=== PATIENT | female | born 1930 | race Caucasian/White ===

== ENCOUNTER → 2019-07-28 | Outpatient (REF) | payer MEDICARE ==
[2019-07-28 17:48] LABS: ALBUMIN 3.5 GM/DL (3.2-5.2); BILIRUBIN,TOTAL 0.3 MG/DL (0.2-1.0); CALCIUM LEVEL 8.7 MG/DL (8.8-10.2); CHOLESTEROL RISK RATIO 3.188 (<5); CREATININE FOR GFR 1.86 MG/DL (0.55-1.30); FREE T4 0.89 NG/DL (0.76-1.46); GLOMERULAR FILTRATION RATE 27.3 (>32); MAGNESIUM LEVEL 1.8 MG/DL (1.8-2.4); POTASSIUM SERUM 3.7 MEQ/L (3.5-5.1); THYROID STIMULATING HORMONE 1.58 uIU/ML (0.358-3.740); TOTAL PROTEIN 6.9 GM/DL (6.4-8.2)
[2019-07-28 17:49] LABS: TOTAL 25(OH) VITAMIN D 16.5 NG/ML (30.0-100.0)
[2019-07-28 17:50] LABS: BASO # 0.1 10^3/uL (0.0-0.2); BASO % 0.8 % (0.0-1.0); EOS # 0.3 10^3/uL (0.0-0.5); HEMOGLOBIN 10.5 g/dl (12.0-15.5); LYMPH # 1.5 10^3/uL (1.5-5.0); LYMPH % 21.5 % (24.0-44.0); MEAN CORPUSCULAR HEMOGLOBIN 30.3 pg (27.0-33.0); MEAN CORPUSCULAR HGB CONC 30.9 g/dl (32.0-36.5); MONO # 0.6 10^3/uL (0.0-0.8); MONO % 7.9 % (0.0-5.0); NEUTROPHILS # 4.6 10^3/uL (1.5-8.5); NEUTROPHILS % 65.4 % (36.0-66.0); PLATELET COUNT, AUTOMATED 211 10^3/uL (150-450); RED BLOOD COUNT 3.47 10^6/uL (4.00-5.40); WHITE BLOOD COUNT 7.1 10^3/uL (4.0-10.0)
[2019-07-28 18:23] LABS: HEMOGLOBIN A1c 5.9 %
== END ==
LOC: M SFHCPLAZ 15:04
PROVIDERS: ATTEND Nurse Practitioner Family
DX: I10 Essential (primary) hypertension (principal); E03.9 Hypothyroidism, unspecified; E78.5 Hyperlipidemia, unspecified; M10.9 Gout, unspecified; E55.9 Vitamin D deficiency, unspecified

== ENCOUNTER → 2019-11-24 | Outpatient (REF) | payer MEDICARE ==
[2019-11-24 16:05] LABS: ALBUMIN 3.7 GM/DL (3.2-5.2); BILIRUBIN,TOTAL 0.6 MG/DL (0.2-1.0); CALCIUM LEVEL 9.2 MG/DL (8.8-10.2); CHOLESTEROL RISK RATIO 3.085 (<5); CREATININE FOR GFR 2.4 MG/DL (0.55-1.30); GLOMERULAR FILTRATION RATE 20.3 (>32); PERCENT SATURATION 18.5 % (13.2-45.0); POTASSIUM SERUM 4.2 MEQ/L (3.5-5.1); THYROID STIMULATING HORMONE 4.33 uIU/ML (0.358-3.740); TOTAL 25(OH) VITAMIN D 112.5 NG/ML (30.0-100.0); TOTAL PROTEIN 7.1 GM/DL (6.4-8.2)
[2019-11-24 16:09] LABS: HEMOGLOBIN A1c 5.9 %
== END ==
LOC: M SFHCPLAZ 12:36
PROVIDERS: ATTEND Nurse Practitioner Family
DX: I10 Essential (primary) hypertension (principal); D64.9 Anemia, unspecified; E03.9 Hypothyroidism, unspecified; R73.09 Other abnormal glucose; E78.5 Hyperlipidemia, unspecified; E55.9 Vitamin D deficiency, unspecified
CPT/HCPCS: 36415; 80053; 80061; 82306; 82728; 83036; 83550; 83970; 84439; 84443; 85046; G0404

== ENCOUNTER → 2019-12-03 | Outpatient (REF) | payer MEDICARE ==
[2019-12-07 18:42] LABS: FOLATE 22.1 NG/ML
== END ==
LOC: M LAB REF 16:59
PROVIDERS: ATTEND Internal Medicine Nephrology
DX: N18.9 Chronic kidney disease, unspecified (principal); D63.1 Anemia in chronic kidney disease

== ENCOUNTER → 2019-12-10 | Outpatient (CLI) | payer MEDICARE, MEDICAID ==
--- NOTE | 2019-12-10 19:26 | REP ---
Urinary tract sonography: History: Chronic kidney disease stage IV. No comparison imaging. Sonographic findings: Scanning at the urinary bladder level shows no significant abnormality. Renal cortical echogenicity pattern is isoechoic consistent with chronic medical renal disease. Right kidney measures 8.3 x 4.1 x 4.0 cm. The left renal dimensions are 9.1 x 3.2 x 3.9 cm. The kidneys have a cortical thinning and mild atrophy is seen bilaterally. There is no evidence of hydronephrosis on either side. There are multiple cysts in each kidney. These include a 3.0 x 2.4 x 3.3 cm cyst in the upper pole of the right and two smaller cysts each measuring 1.6 cm in greatest diameter. On the left there is a 2.3 x 1.8 x 1.1 cm cyst and a 2.4 x 2.1 x 2.3 cm cyst in the upper pole. There is also a 1.0 cm cyst in the upper pole on the left. Impression: Increased cortical echogenicity consistent with chronic medical renal disease. Multiple bilateral cysts. Some cortical and renal atrophy. Electronically Signed by Toy Quan MD 12/10/2019 09:14 P
== END ==
LOC: M RAD 13:49
PROVIDERS: ATTEND Internal Medicine Nephrology
DX: N18.4 Chronic kidney disease, stage 4 (severe) (principal); I12.9 Hypertensive chronic kidney disease with stage 1 through stage 4 chronic kidney disease, or unspecified chronic kidney disease; M1A.30X0 Chronic gout due to renal impairment, unspecified site, without tophus (tophi); N28.1 Cyst of kidney, acquired

== ENCOUNTER 2020-01-21 10:30 | Day surgery (SDC) | payer MEDICARE, MEDICAID ==
[~2020-01-21] VITALS: Ht 154.9 cm; Wt 61.1 kg
[2020-01-21] VITALS (7 sets, daily range): BP systolic 146–178; BP diastolic 80–92
[~2020-01-21 10:30] MED LIST: ALLO100T PO; ASPI81TA85 PO; CARV3.12 PO; LEVO25TA5 PO; LIDOCAINE 1% MDV 20ML VIAL SQ PRN; LIDOCAINE 2% INJ 100 MG/5 ML SDV (FOR ANES.) As Ordered ONE; LR 1,000 ML IV ONE; MIDAZOLAM INJ 2 MG/2 ML VIAL (J2250) As Ordered ONE; ONDANSETRON 4MG/2ML VIAL (J2405) As Ordered ONE; SIMV20TA22 PO; ceFAZolin SOD 1 GM in D5W MINI-BAG PLUS 50 ML IV ONE; dexameTHASONE 4 MG/ML 1ML VIAL (J1100) As Ordered ONE; fentaNYL 100 MCG/2 ML INJECTION (J3010) As Ordered ONE; propofoL 200 MG/20 ML VIAL As Ordered ONE
[2020-01-21 11:03] LABS: HEMATOCRIT 36.8 % (36.0-47.0); HEMOGLOBIN 11.3 g/dl (12.0-15.5); MEAN CORPUSCULAR HEMOGLOBIN 30.1 pg (27.0-33.0); MEAN CORPUSCULAR HGB CONC 30.7 g/dl (32.0-36.5); MEAN CORPUSCULAR VOLUME 98.1 fl (80.0-96.0); PLATELET COUNT, AUTOMATED 208 10^3/uL (150-450); RED BLOOD COUNT 3.75 10^6/uL (4.00-5.40); WHITE BLOOD COUNT 6.2 10^3/uL (4.0-10.0)
[2020-01-21] MEDS ORDERED: FERR325T16 PO (11:30)
[2020-01-21] MEDS ORDERED: POTA10808 PO (11:30)
[2020-01-21] MEDS ORDERED: MUPIROCIN 2% OINT 22 GM TUBE As Ordered ONE (12:12)
[2020-01-21] MEDS ORDERED: LIDOCAINE 1% SDV INJ 30 ML VIAL As Ordered ONE (12:12)
[2020-01-21] MEDS ORDERED: ISOVUE-300 61% 50ML VIAL (Q9967) As Ordered ONE (12:12)
[2020-01-21] MEDS ORDERED: VANCOMYCIN HCL 500 MG/10 ML VIAL (J3370) As Ordered ONE (12:12)
[2020-01-21] MEDS ORDERED: LR 400 ML IV SCH (13:15)
[2020-01-21] MEDS ORDERED: propofoL 200 MG/20 ML VIAL As Ordered ONE (13:54)
[2020-01-21] MEDS ORDERED: ACETAMINOPHEN 1000MG 100ML IV BTL (OFIRMEV) (J0131 PER 10MG) As Ordered ONE (14:46)
[2020-01-21] MEDS ORDERED: ONDANSETRON 4MG/2ML VIAL (J2405) IV PRN (15:45)
[2020-01-21] MEDS ORDERED: PERCOCET 5MG/325MG TAB PO PRN (15:45)
[2020-01-21] MEDS ORDERED: LR 1,000 ML IV SCH (15:45)
[2020-01-21] MEDS ORDERED: ACETAMINOPHEN TAB 650MG DOSE (2X325MG) PO PRN (16:00)
--- NOTE | 2020-01-21 17:01 | REP ---
C-ARM VIEW CHEST: C-Arm view of the chest is performed during pacemaker insertion. There is a left dual lead pacemaker with atrial and ventricular leads apparently in good position. Fluoroscopy time 7.05 minutes. Electronically Signed by Eugene Qureshi MD 01/25/2020 04:15 P
--- NOTE | 2020-01-21 17:05 | REP ---
Portable chest x-ray: Single view. History: Status post pacemaker. Comparison chest x-ray: June 24, 2006. Findings: There are surgical clips in the left axillary soft tissues. A bipolar pacemaker is seen in the right heart via the left side. There are surgical clips adjacent to the pacemaker power plant. Monitoring electrodes are seen. There is a moderate sized hiatal hernia. There is no evidence of pneumothorax or hydrothorax. Lung shankar are clear. Impression: Transvenous pacemaker insertion via the left side. No complication is seen. Hiatal hernia noted. Electronically Signed by Toy Quan MD 01/21/2020 06:57 P
[2020-01-21] MEDS ORDERED: SLF 3 ML SYR IV PRN (18:30)
[2020-01-21] MEDS ORDERED: SIMVASTATIN 20 MG TAB PO SCH (21:00)
[2020-01-21] MEDS: SLF 3 ML SYR IV SCH (21:09)
--- NOTE | 2020-01-21 21:26 | RO ---
DATE OF PROCEDURE: 01/21/2020 INDICATION: Sick sinus syndrome. PREPROCEDURE DIAGNOSIS: Sick sinus syndrome. POSTPROCEDURE DIAGNOSIS: Sick sinus syndrome. FINDINGS: Sick sinus syndrome. PROCEDURE PERFORMED: Implantation of a permanent dual-chamber pacemaker (Medtronic). SURGEON: Peterson Boyd MD OIL PAINT SHADER: None. ANESTHESIA: ESTIMATED BLOOD LOSS: 150 mL. COMPLICATIONS: None. BIOPSIES: None. SPECIMENS: None. DESCRIPTION OF PROCEDURE: The patient was prepped and draped over the left pectoral region and 3M Ioban film was applied. Lidocaine 1% was used for local anesthetic. A left subclavian venogram was performed using a total volume of 20 mL consisting of a mixture of five parts Isovue to one part injectable normal saline, which was injected via a left forearm peripheral vein and was used in real time under fluoroscopic visualization to obtain percutaneous venipuncture into the extrathoracic portion of the left subclavian vein using a micropuncture needle. A guidewire was then placed into the vein. This was then guidewire exchanged for a guidewire that came with one of the 7-Malagasy introducers. Next, an incision was made with a PEAK PlasmaBlade approximately 2-1/2 inches in length, 1 cm below the entry site of the guidewire approximately parallel to the left clavicle. The PEAK PlasmaBlade was used to get through the fatty layer and the fibrous Paulie's fascia. The pacemaker pocket was then formed in a caudal direction using blunt dissection using two fingers to form the pacemaker pocket. The guidewire was then pulled through the skin into the incision site. Next, a 7-Malagasy sheath with introducer was placed over the guidewire and advanced into the left subclavian vein. The sheath was left in place along with the guidewire and the introducer was removed. Next, the guidewire from the other 7-Malagasy sheath was placed alongside the first guidewire within this 7-Malagasy sheath. Next, the 7-Malagasy sheath was withdrawn and the two guidewires left in the vein. Next, the introducer was placed back into the sheath and then the combination of the sheath and introducer was placed over one of the guidewires. This was used for vein access for the right ventricle lead. The right ventricle lead was placed under fluoroscopic guidance into the right ventricle apex position where it was secured with a total of eight turns. This position was found to be electrically and anatomically satisfactory and no diaphragm stimulation could be palpated on either side with 8 volts high output pacing. The 7-Malagasy sheath was then broken apart and removed. Next, the other 7-Malagasy sheath with introducer was placed over the other guidewire and advanced into the vein. This sheath was used for vein access for placement of the right atrial lead. The right atrial lead was placed into the vicinity of the right atrial appendage under fluoroscopic guidance using the assistance of a preformed J-stylet. It was secured with a total of 10 turns. This position was found to be electrically and anatomically satisfactory. The 7-Malagasy sheath was then removed. Next, the atrial and ventricular leads were secured to the pectoral muscle using their supplied tie-down sheaths using a single #0 Ethibond suture around each sheath to secure it to the pectoral muscle over the suture sleeves. Next, I took a #2-0 Vicryl suture and placed a pots suture covering the pectoral muscle entry site of the two leads to stop backbleeding from the vein into the pocket, and this was successful. Next, another #0 Ethibond suture was placed in the pectoral muscle to serve as the tie-down for the pacemaker pulse generator. The terminal pins of the atrial and ventricular leads were plugged into their respective ports and each one was secured by tightening the set screws with the hex screwdriver. The excess lead material was then coiled underneath the pacemaker pulse generator and placed into the pacemaker pocket along with the pacemaker pulse generator with the pacemaker pulse generator on top and the excess lead material below it. The pulse generator was then secured to the pectoral muscle with the previously placed #0 Ethibond suture. The deep layer was then closed using individual sutures consisting of #2-0 Vicryl. The skin was closed using mi. This was followed by application of Bactroban ointment, followed by Telfa, followed by sterile gauze, followed by a Bioclusive dressing, and then a light pressure dressing applied with foam tape. The patient received a left arm sling prior to leaving the operating room. The patient tolerated the procedure well without any immediate complications. The pacemaker pulse generator implanted was a [employer] [place] XT DR MRI with model #W1DR01 with serial #[id number]. The right atrial lead implanted was a Medtronic model 365555 with serial #[id number]. Testing of the right atrial lead in the operating room in bipolar configuration via the pulse analyzer showed capture threshold of 0.4 volts at 0.4 milliseconds with a lead impedance of 399 ohms, and P wave amplitude of 2.1 millivolts. Device-based testing in the operating room for the right atrial lead showed capture threshold of 0.5 volts at 0.4 milliseconds with P wave amplitude of 1.0 millivolts and lead impedance of 399 ohms. The right ventricle lead implanted was a Medtronic model 047380 with serial #[id number]. Final testing in the operating room of the right ventricle lead in bipolar configuration via the pulse analyzer showed capture threshold of 0.4 volts at 0.4 milliseconds with lead impedance of 494 ohms and R wave amplitude of 4.0 millivolts. Device-based testing in the operating room for the right ventricle lead showed R wave amplitude of 3.7 millivolts with lead impedance of 475 ohms and a capture threshold of 0.5 volts at 0.4 milliseconds.
[2020-01-22 04:00] VITALS: BP 168/96
[2020-01-22] MEDS: SLF 3 ML SYR IV SCH ×2 (05:51→13:55)
[2020-01-22] MEDS ORDERED: LEVOTHYROXINE 50MCG TABLET (0.05MG) PO SCH (06:00)
[2020-01-22 08:00] VITALS: BP 149/80
--- NOTE | 2020-01-22 08:29 | REP ---
Chest x-ray: Two views. History: Postop dual chamber pacemaker. Comparison study January 21, 2020 and June 24, 2006. Findings: There is a large hiatal hernia. A bipolar pacemaker is seen in place via the left side. There is no evidence of pneumothorax. 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 Heart size is borderline unchanged. Impression: No pneumothorax seen. Bibasilar fibrosis. Large hiatal hernia. Pacemaker in place. Electronically Signed by Toy Quan MD 01/22/2020 08:20 A
[2020-01-22] MEDS ORDERED: allopurinoL 100 MG TAB PO SCH (09:00)
[2020-01-22] MEDS: amLODIPine 5 MG TAB PO SCH ×2 (09:22→09:24)
[2020-01-22 09:24] VITALS: BP 149/80
--- NOTE | 2020-01-22 10:25 | ECGEPIP ---
[facility] Test Date: 2020-01-21 Pat Name: VICENTE WISDOM Department: Room: [place] [address] Gender: Female Tire Layer: YA : 1930 Requested By: Peterson Boyd Order Number: [id number] Reading MD: Peterson Lacey Measurements Intervals [place] Rate: 82 P: 20 DE: 193 QRS: -14 QRSD: 81 T: 8 QT: 397 QTc: 465 Interpretive Statements SINUS RHYTHM Inferior Q waves of uncertain significance Possible lead placement abnormality v1-v3 Comparison tracing not on file Electronically Signed on 01-22-2020 10:24:48 EST by Peterson Lacye
[2020-01-22 12:00] VITALS: BP 142/68
[2020-01-22] MEDS ORDERED: AMLO5TAB6 PO (13:51)
[2020-01-22] MEDS ORDERED: ACET1TAB55 PO (13:51)
== END 2020-01-22 15:10 | disposition home or self-care (01) ==
LOC: M SDC 10:30 → M PCU 16:41 → M SDC 01-22 15:10
PROVIDERS: ATTEND Internal Medicine Cardiovascular Disease
DX: I49.5 Sick sinus syndrome (principal); I10 Essential (primary) hypertension; E78.00 Pure hypercholesterolemia, unspecified; R55 Syncope and collapse; M10.9 Gout, unspecified; E03.9 Hypothyroidism, unspecified; N28.9 Disorder of kidney and ureter, unspecified; Z85.3 Personal history of malignant neoplasm of breast; M19.90 Unspecified osteoarthritis, unspecified site; Z92.21 Personal history of antineoplastic chemotherapy; Z92.3 Personal history of irradiation; Z79.899 Other long term (current) drug therapy; Z79.82 Long term (current) use of aspirin
CPT/HCPCS: 33208; 36415; 71045; 71046; 76000; 85027; 93005; C1785; C1898; J0131; J0690; J1100; J2250; J2405; J3010; Q9967

== ENCOUNTER → 2020-08-29 | Outpatient (REF) | payer MEDICARE ==
[~2020-08-29] MED LIST changes: +ACET1TAB55 PO; +AMLO1TAB24 PO; -ASPI81TA85 PO; +ASPI81TA86 PO; +FERR325T16 PO; -LIDOCAINE 1% MDV 20ML VIAL SQ PRN; -LIDOCAINE 2% INJ 100 MG/5 ML SDV (FOR ANES.) As Ordered ONE; -LR 1,000 ML IV ONE; -MIDAZOLAM INJ 2 MG/2 ML VIAL (J2250) As Ordered ONE; -ONDANSETRON 4MG/2ML VIAL (J2405) As Ordered ONE; +POTA10808 PO; -ceFAZolin SOD 1 GM in D5W MINI-BAG PLUS 50 ML IV ONE; -dexameTHASONE 4 MG/ML 1ML VIAL (J1100) As Ordered ONE; -fentaNYL 100 MCG/2 ML INJECTION (J3010) As Ordered ONE; -propofoL 200 MG/20 ML VIAL As Ordered ONE
[2020-08-29 17:30] LABS: BASO # 0.1 10^3/uL (0.0-0.2); BASO % 1.1 % (0.0-1.0); EOS # 0.3 10^3/uL (0.0-0.5); HEMATOCRIT 41.3 % (36.0-47.0); HEMOGLOBIN 12.9 g/dl (12.0-15.5); LYMPH # 1.3 10^3/uL (1.5-5.0); LYMPH % 20.2 % (24.0-44.0); MEAN CORPUSCULAR HEMOGLOBIN 30.1 pg (27.0-33.0); MEAN CORPUSCULAR HGB CONC 31.2 g/dl (32.0-36.5); MEAN CORPUSCULAR VOLUME 96.3 fl (80.0-96.0); MONO # 0.5 10^3/uL (0.0-0.8); MONO % 7.8 % (0.0-5.0); NEUTROPHILS # 4.3 10^3/uL (1.5-8.5); NEUTROPHILS % 66.4 % (36.0-66.0); PLATELET COUNT, AUTOMATED 194 10^3/uL (150-450); RED BLOOD COUNT 4.29 10^6/uL (4.00-5.40); WHITE BLOOD COUNT 6.4 10^3/uL (4.0-10.0)
[2020-08-29 17:45] LABS: HEMOGLOBIN A1c 5.7 %
[2020-08-29 18:05] LABS: ALBUMIN 3.9 GM/DL (3.2-5.2); BILIRUBIN,TOTAL 0.6 MG/DL (0.2-1.0); CALCIUM LEVEL 9.5 MG/DL (8.8-10.2); CHOLESTEROL RISK RATIO 2.807 (<5); CREATININE FOR GFR 1.77 MG/DL (0.55-1.30); FREE T4 1.01 NG/DL (0.76-1.46); GLOMERULAR FILTRATION RATE 28.8 (>32); POTASSIUM SERUM 4.4 MEQ/L (3.5-5.1); THYROID STIMULATING HORMONE 6.05 uIU/ML (0.358-3.740); TOTAL PROTEIN 7.7 GM/DL (6.4-8.2); URIC ACID 6.9 MG/DL (2.6-6.0)
[2020-08-29 18:07] LABS: TOTAL 25(OH) VITAMIN D 27.4 NG/ML (30.0-100.0)
[2020-08-29 18:08] LABS: PTH INTACT 182.7 PG/ML (18.5-88.0)
== END ==
LOC: M SFHCPLAZ 15:18
PROVIDERS: ATTEND Nurse Practitioner Family
DX: E78.5 Hyperlipidemia, unspecified (principal); R73.03 Prediabetes; D64.9 Anemia, unspecified; N18.4 Chronic kidney disease, stage 4 (severe); E55.9 Vitamin D deficiency, unspecified; M10.9 Gout, unspecified; E03.9 Hypothyroidism, unspecified

== ENCOUNTER → 2020-09-06 | Outpatient (CLI) | payer MEDICARE ==
--- NOTE | 2020-09-06 08:34 | REP ---
INDICATION: CKD HTN COMPARISON: 11/08/2019 TECHNIQUE: Real time chatman scale ultrasound examination using curved array transducer. FINDINGS: The right kidney measures 10.9 x 5.3 x 3.3 cm and includes multiple cysts including 4.1 cm upper pole cyst and no evidence for hydronephrosis or obvious nephrolithiasis. The left kidney is hyperechoic and atrophic measuring 8.7 x 4.8 x 3.1 cm with multiple cysts including 3.3 cm upper pole cyst and no evidence for hydronephrosis or obvious nephrolithiasis. Doppler interrogation of the main renal arteries is nondiagnostic due to extensive overlying bowel gas. The intrarenal vasculature to the right kidney demonstrate normal resistive indices and acceleration times. The intrarenal vasculature to the left kidney demonstrates tardus parvus wave patterns with decreased resistive indices suggesting chronic renal arterial stenosis and consistent with the atrophic appearance to the left kidney. IMPRESSION: 1. Atrophic appearance of the left kidney with Doppler findings to suggest left renal artery stenosis. 2. Further complete evaluation of the renal arteries is nondiagnostic due to extensive overlying bowel gas. Consider CTA examination if necessary. 3. Remainder of the examination as above including bilateral simple and complex cysts. <Electronically signed by Sukhjinder Sanders > 09/06/20 [id number]
== END ==
LOC: M RAD 07:08
PROVIDERS: ATTEND Nurse Practitioner Family
DX: N18.4 Chronic kidney disease, stage 4 (severe) (principal); N28.1 Cyst of kidney, acquired; R09.89 Other specified symptoms and signs involving the circulatory and respiratory systems

== ENCOUNTER → 2020-09-14 | Outpatient (CLI) | payer MEDICARE ==
[~2020-09-14] MED LIST changes: +ISOVUE-370 76% 100ML VIAL As Ordered ONE
== END ==
LOC: M RAD 08:22
PROVIDERS: ATTEND Nurse Practitioner Family
DX: I70.1 Atherosclerosis of renal artery (principal)

== ENCOUNTER → 2021-02-27 | Outpatient (REF) | payer MEDICARE ==
[~2021-02-27] MED LIST changes: +FERR324T21 PO; -FERR325T16 PO; -ISOVUE-370 76% 100ML VIAL As Ordered ONE
[2021-02-27 18:32] LABS: BASO # 0.1 10^3/uL (0.0-0.2); BASO % 1.2 % (0.0-1.0); EOS # 0.2 10^3/uL (0.0-0.5); EOS % 3.2 % (0.0-3.0); HEMATOCRIT 35.6 % (36.0-47.0); HEMOGLOBIN 10.9 g/dl (12.0-15.5); MEAN CORPUSCULAR HEMOGLOBIN 30.5 pg (27.0-33.0); MEAN CORPUSCULAR HGB CONC 30.6 g/dl (32.0-36.5); MEAN CORPUSCULAR VOLUME 99.7 fl (80.0-96.0); MONO # 0.4 10^3/uL (0.0-0.8); MONO % 7.1 % (2.0-8.0); NEUTROPHILS # 4.2 10^3/uL (1.5-8.5); PLATELET COUNT, AUTOMATED 192 10^3/uL (150-450); RED BLOOD COUNT 3.57 10^6/uL (4.00-5.40)
[2021-02-27 18:56] LABS: ALBUMIN 3.9 GM/DL (3.2-5.2); BILIRUBIN,TOTAL 0.3 MG/DL (0.2-1.0); CALCIUM LEVEL 9.6 MG/DL (8.8-10.2); CHOLESTEROL RISK RATIO 2.22 (<5); CREATININE FOR GFR 1.66 MG/DL (0.55-1.30); FREE T4 0.97 NG/DL (0.76-1.46); POTASSIUM SERUM 4.3 MEQ/L (3.5-5.1); THYROID STIMULATING HORMONE 12.6 uIU/ML (0.358-3.740); TOTAL PROTEIN 7.2 GM/DL (6.4-8.2); URIC ACID 5.3 MG/DL (2.6-6.0)
[2021-02-27 19:09] LABS: PTH INTACT 119.8 PG/ML (18.5-88.0)
[2021-02-27 19:27] LABS: HEMOGLOBIN A1c 5.4 %
== END ==
LOC: M SFHCPLAZ 15:15
PROVIDERS: ATTEND Nurse Practitioner Family
DX: E78.5 Hyperlipidemia, unspecified (principal); I10 Essential (primary) hypertension; E03.9 Hypothyroidism, unspecified; M10.9 Gout, unspecified; E55.9 Vitamin D deficiency, unspecified; D64.9 Anemia, unspecified; R73.03 Prediabetes

== ENCOUNTER → 2021-08-29 | Outpatient (CLI) | payer MEDICARE ==
[2021-08-29 17:56] LABS: BASO # 0.1 10^3/uL (0.0-0.2); BASO % 1.1 % (0.0-1.0); EOS # 0.4 10^3/uL (0.0-0.5); EOS % 5.5 % (0.0-3.0); HEMATOCRIT 32.6 % (36.0-47.0); HEMOGLOBIN 9.7 g/dl (12.0-15.5); LYMPH # 1.2 10^3/uL (1.5-5.0); LYMPH % 18.4 % (24.0-44.0); MEAN CORPUSCULAR HEMOGLOBIN 27.1 pg (27.0-33.0); MEAN CORPUSCULAR HGB CONC 29.8 g/dl (32.0-36.5); MEAN CORPUSCULAR VOLUME 91.1 fl (80.0-96.0); MONO # 0.6 10^3/uL (0.0-0.8); NEUTROPHILS # 4.3 10^3/uL (1.5-8.5); NEUTROPHILS % 65.8 % (36.0-66.0); PLATELET COUNT, AUTOMATED 225 10^3/uL (150-450); RED BLOOD COUNT 3.58 10^6/uL (4.00-5.40); WHITE BLOOD COUNT 6.5 10^3/uL (4.0-10.0)
[2021-08-29 18:12] LABS: HEMOGLOBIN A1c 5.6 %
[2021-08-29 18:33] LABS: ALBUMIN 3.4 GM/DL (3.2-5.2); BILIRUBIN,TOTAL 0.3 MG/DL (0.2-1.0); CALCIUM LEVEL 8.8 MG/DL (8.8-10.2); CHOLESTEROL RISK RATIO 3.34 (<5); CREATININE FOR GFR 1.82 MG/DL (0.55-1.30); FREE T4 1.21 NG/DL (0.76-1.46); GLOMERULAR FILTRATION RATE 27.8 (>32); POTASSIUM SERUM 4.2 MEQ/L (3.5-5.1); THYROID STIMULATING HORMONE 0.037 uIU/ML (0.358-3.740); TOTAL PROTEIN 7.2 GM/DL (6.4-8.2)
[2021-08-30 11:37] LABS: PTH INTACT 132.3 PG/ML (18.5-88.0)
== END ==
LOC: M PLALAB 15:11
PROVIDERS: ATTEND Nurse Practitioner Family
DX: I10 Essential (primary) hypertension (principal); E78.5 Hyperlipidemia, unspecified; E03.9 Hypothyroidism, unspecified; M10.9 Gout, unspecified; E55.9 Vitamin D deficiency, unspecified; D64.9 Anemia, unspecified; Z79.899 Other long term (current) drug therapy
CPT/HCPCS: 36415; 80053; 80061; 82306; 83036; 83970; 84439; 84443; 84550; 85025; G0463